=== PATIENT | female | born 1935 | race Two or more races ===

== ENCOUNTER 2018-03-12 05:41 | Inpatient (IN) | payer SELFPAY ==
[~2018-03-12] VITALS: Ht 142.2 cm; Wt 54.0 kg
[2018-03-12] VITALS (7 sets, daily range): BP systolic 157–206; BP diastolic 40–78
[2018-03-12] MEDS ORDERED: BP MEDS (05:50)
[2018-03-12] MEDS ORDERED: Isovue-300 100ml vial INJ PRN (06:15)
--- NOTE | 2018-03-12 06:16 | Emergency Room Report ---
History of Present Illness General Chief Complaint: Vaginal Source: Patient, Family Member Present Illness HPI This is an 83-year-old female with no past medical history other than depression. She presents with chief complaint of rectal bleeding. Initially her daughter said vaginal bleeding but in reality rectal bleeding. It was painless. She went to the bathroom and there was blood from her rectum. No fever chills. No nausea no vomiting. She does have some mild left upper quadrant pain is been on and off for a while now. No workup. No weight loss. Denies any other complaint. No urinary complaint. Allergies: Coded Allergies: No Known Allergies (Unverified , 03/12/18) Patient History Past Medical History: see triage record, old chart reviewed, psych hx - depression Past Surgical History: other Pertinent Family History: none Social History: Denies: drug use Now: No Immunizations: other Reviewed Nursing Documentation: PMH: Agreed; PSxH: Agreed Nursing Documentation-PMH Hx Hypertension: Yes Review of Systems Eye: Denies: eye pain, blurred vision ENT: Denies: ear pain, nose congestion, throat swelling Respiratory: Denies: cough, shortness of breath Cardiovascular: Denies: chest pain, palpitations Gastrointestinal: Denies: abdominal pain, diarrhea, nausea, vomiting Musculoskeletal: Denies: back pain, joint pain Skin: Denies: rash Neurological: Denies: headache, numbness Endocrine: Denies: increased thirst, increased urine Hematologic/Lymphatic: Denies: easy bruising All Other Systems: negative except mentioned in HPI Physical Exam Vital Signs Date Time Temp Pulse Resp B/P (MAP) Pulse Ox O2 Delivery O2 Flow Rate FiO2 03/12/18 05:43 97.7 71 16 192/67 94 Room Air 97.7 vitals with high blood pressure Sp02 EP Interpretation: reviewed, normal General Appearance: well appearing, no apparent distress, alert Head: normocephalic, atraumatic Eyes: bilateral eye PERRL, bilateral eye EOMI ENT: hearing grossly normal, normal pharynx Neck: full range of motion, supple, no meningismus Respiratory: chest non-tender, lungs clear, normal breath sounds Cardiovascular #1: regular rate, rhythm, no murmur Gastrointestinal: normal bowel sounds, non tender, no mass, no organomegaly, no bruit, non-distended Genitourinary: other - Vaginal exam done with female nurse as RN. There was no blood in the vaginal vault. She has dry blood on her underwear. She has dry blood in the rectum. Musculoskeletal: back normal, gait/station normal, normal range of motion Neurologic: normal inspection, alert Psychiatric: mood/affect normal Skin: warm/dry Medical Decision Making Diagnostic Impression: Primary Impression: Rectal bleeding Additional Impression: Hypertension Qualified Codes: I10 - Essential (primary) hypertension ER Course Patient with rectal bleeding. Differential included but not limited to hemorrhoid, neoplastic process, diverticular bleed to name a few. She is currently not on any blood pressure medication. Blood pressures high here. Labs pending. CT scan pending. I will sign this patient out to Dr. Elena for final disposition. Last Vital Signs Date Time Temp Pulse Resp B/P (MAP) Pulse Ox O2 Delivery O2 Flow Rate FiO2 03/12/18 05:43 97.7 71 16 192/67 94 Room Air 97.7 Status: unchanged BESS BALDERAS M.D. Mar 12, 2018 06:16
[2018-03-12 06:39] LABS: BASOPHILS % (AUTO) 0.6 % (0.0-2.0); EOSINOPHILS % (AUTO) 0.7 % (0.0-3.0); HEMATOCRIT 34.3 % (37.0-47.0); HEMOGLOBIN 12.4 G/DL (12.0-16.0); LYMPHOCYTES % (AUTO) 53.9 % (20.0-45.0); MEAN CORPUSCULAR VOLUME 100 FL (80-99); MONOCYTES % (AUTO) 14.6 % (1.0-10.0); NEUTROPHILS % (AUTO) 30.2 % (45.0-75.0); PLATELET COUNT 206 K/UL (150-450); RED BLOOD COUNT 3.42 M/UL (4.20-5.40); RED CELL DISTRIBUTION WIDTH 11.9 % (11.6-14.8); WHITE BLOOD COUNT 13.2 K/UL (4.8-10.8)
[2018-03-12 06:48] LABS: ANION GAP 8 mmol/L (5-15); BLOOD UREA NITROGEN 21 mg/dL (7-18); CALCIUM 8.6 MG/DL (8.5-10.1); CARBON DIOXIDE 27 MMOL/L (21-32); CHLORIDE 108 MMOL/L (98-107); CREATININE 0.8 MG/DL (0.55-1.30); POTASSIUM 3.8 MMOL/L (3.5-5.1); SODIUM 143 MMOL/L (136-145)
[2018-03-12 06:53] LABS: ALANINE AMINOTRANSFERASE 21 U/L (12-78); ALBUMIN 2.7 G/DL (3.4-5.0); ALBUMIN/GLOBULIN RATIO 0.7 (1.0-2.7); ALKALINE PHOSPHATASE 133 U/L (46-116); ASPARTATE AMINO TRANSFERASE 24 U/L (15-37); BILIRUBIN,TOTAL 0.2 MG/DL (0.2-1.0)
[2018-03-12 07:02] LABS: APPEARANCE,URINE CLEAR; BILIRUBIN, URINE NEGATIVE (NEGATIVE); COLOR,URINE PALE YELLOW; GLUCOSE, URINE (UA) NEGATIVE (NEGATIVE); KETONES,URINE NEGATIVE (NEGATIVE); LEUKOCYTE ESTERASE ,URINE NEGATIVE (NEGATIVE); NITRITE,URINE NEGATIVE (NEGATIVE); PH,URINE 6 (4.5-8.0); PROTEIN,URINE NEGATIVE (NEGATIVE); UROBILINOGEN,URINE NORMAL MG/DL (0.0-1.0)
--- NOTE | 2018-03-12 07:14 | Emergency Room Report ---
Physical Exam Please see note from Dr. Baptiste. Apparently blood in toilet noted. Thought to be vaginal, however, his exam revealed rectal blood. Patient has been having LLQ pain. She does not understand to characterize. No pain at this time. Vital Signs Date Time Temp Pulse Resp B/P (MAP) Pulse Ox O2 Delivery O2 Flow Rate FiO2 03/12/18 05:43 97.7 71 16 192/67 94 Room Air 97.7 Sp02 EP Interpretation: reviewed, normal General Appearance: well appearing, no apparent distress, other - frail Head: normocephalic Eyes: bilateral eye normal inspection, bilateral eye PERRL ENT: moist mucus membranes Neck: supple Respiratory: lungs clear, normal breath sounds Cardiovascular #1: regular rate, rhythm Cardiovascular #2: 2+ radial (R) Gastrointestinal: normal inspection, normal bowel sounds, non tender, no mass, non-distended Musculoskeletal: back normal, gait/station normal, normal range of motion Neurologic: alert, motor weakness, grossly normal, oriented - X2 Psychiatric: mood/affect normal Skin: normal inspection, warm/dry Medical Decision Making Diagnostic Impression: Primary Impression: Diverticulitis Additional Impressions: Rectal bleeding Hypertension Qualified Codes: I10 - Essential (primary) hypertension ER Course Please from Dr. Baptiste. Patient here for questionable vaginal bleeding however determined to be rectal. Patient without complaints although prior LLQ pain. Labs reveal white count of 13,000. Hgb = 12.4. In addition BUN and is elevated with normal creatinine. CT reveals low grade diverticulitis. Antibiotics begun. Lisinopril given for HTN. Admit med Dr. Anne. Not surgical abdomen or problem at this time. Laboratory Tests Test 03/12/18 06:14 White Blood Count 13.2 K/UL (4.8-10.8) H Red Blood Count 3.42 M/UL (4.20-5.40) L Hemoglobin 12.4 G/DL (12.0-16.0) Hematocrit 34.3 % (37.0-47.0) L Mean Corpuscular Volume 100 FL (80-99) H Mean Corpuscular Hemoglobin 36.1 PG (27.0-31.0) H Mean Corpuscular Hemoglobin Concent 36.1 G/DL (32.0-36.0) H Red Cell Distribution Width 11.9 % (11.6-14.8) Platelet Count 206 K/UL (150-450) Mean Platelet Volume 7.4 FL (6.5-10.1) Neutrophils (%) (Auto) 30.2 % (45.0-75.0) L Lymphocytes (%) (Auto) 53.9 % (20.0-45.0) H Monocytes (%) (Auto) 14.6 % (1.0-10.0) H Eosinophils (%) (Auto) 0.7 % (0.0-3.0) Basophils (%) (Auto) 0.6 % (0.0-2.0) Urine Color Pale yellow Urine Appearance Clear Urine pH 6 (4.5-8.0) Urine Specific [place] 1.015 (1.005-1.035) Urine Protein Negative (NEGATIVE) Urine Glucose (UA) Negative (NEGATIVE) Urine Ketones Negative (NEGATIVE) Urine Occult Blood 1+ (NEGATIVE) H Urine Nitrite Negative (NEGATIVE) Urine Bilirubin Negative (NEGATIVE) Urine Urobilinogen Normal MG/DL (0.0-1.0) Urine Leukocyte Esterase Negative (NEGATIVE) Urine RBC 2-4 /HPF (0 - 2) H Urine WBC 0-2 /HPF (0 - 2) Urine Squamous Epithelial Cells Few /LPF (NONE/OCC) Urine Bacteria Occasional /HPF (NONE) Sodium Level 143 MMOL/L (136-145) Potassium Level 3.8 MMOL/L (3.5-5.1) Chloride Level 108 MMOL/L (98-107) H Carbon Dioxide Level 27 MMOL/L (21-32) Anion Gap 8 mmol/L (5-15) Blood Urea Nitrogen 21 mg/dL (7-18) H Creatinine 0.8 MG/DL (0.55-1.30) Estimate Glomerular Filtration Rate mL/min (>60) Glucose Level 115 MG/DL (74-106) H Calcium Level 8.6 MG/DL (8.5-10.1) Total Bilirubin 0.2 MG/DL (0.2-1.0) Aspartate Amino Transferase (AST) 24 U/L (15-37) Alanine Aminotransferase (ALT) 21 U/L (12-78) Alkaline Phosphatase 133 U/L (46-116) H Total Protein 6.5 G/DL (6.4-8.2) Albumin 2.7 G/DL (3.4-5.0) L Globulin 3.8 g/dL Albumin/Globulin Ratio 0.7 (1.0-2.7) L Lipase 91 U/L (73-393) EKG Diagnostic Results Rate: normal Rhythm: NSR ST Segments: no acute changes Rhythm Strip Diag. Results EP Interpretation: yes Rhythm: NSR, no PVC's, no ectopy CT/MRI/US Diagnostic Results CT/MRI/US Diagnostic Results : Imaging Test Ordered: CT abd pelvis Impression diverticulitis Last Vital Signs Date Time Temp Pulse Resp B/P (MAP) Pulse Ox O2 Delivery O2 Flow Rate FiO2 03/12/18 20:47 159/64 03/12/18 20:00 98.3 77 18 98 98.3 03/12/18 10:32 Room Air Status: improved Disposition: ADMITTED INPATIENT Condition: Serious Referrals: NOT CHOSEN IPA/,REFERRING (PCP) [place] Elena M.D. Mar 12, 2018 07:14
[2018-03-12] MEDS ORDERED: LOSARTAN POTASS25 MG ORAL (07:36)
[2018-03-12] MEDS ORDERED: Cefepime HCl 1 GM in D5W 55 ML IVPB ONE (08:00)
[2018-03-12] MEDS ORDERED: Lisinopril 10mg tab ORAL ONE (08:00)
[2018-03-12] MEDS ORDERED: Sodium Chloride 500ML 550 ML IV SCH (08:00)
--- NOTE | 2018-03-12 09:17 | Diagnostic Imaging Report ---
Indication: Abdominal pain Technique: Continuous helical transaxial imaging of the abdomen and pelvis was obtained from the lung bases to the pubic symphysis during intravenous contrast administration. Coronal 2-D reformats were also obtained. Study obtained in a Siemens sensation [address] Automatic Exposure Control was utilized. Total Dose length Product (DLP): 621.[address] Dose Index Volume (CTDIvol): 12.2 mGy Comparison: None Findings: The lung bases are essentially clear. There is a small pericardial effusion. The heart is also enlarged. Small hiatal hernia is present. The gallbladder is not visualized. Left kidney is atrophic. Aorta is moderately calcified. No evidence of bowel obstruction. Small umbilical hernia containing fat demonstrated. Question of a mild diverticulitis in the sigmoid region which is extensively involved with diverticulosis. Atrophied uterus noted. No free fluid or abscess, free air identified. There is narrowing of intervertebral discs and accompanying endplate osteophyte formation within the lumbar spine. Hypertrophied facet joints also demonstrated.. IMPRESSION: Question of mild diverticulitis in the sigmoid region. Extensive diverticulosis noted. Atherosclerotic vascular disease Trace pericardial effusion Small hiatal hernia Small local hernia Atrophy left kidney. Degenerative changes of the lumbar spine The CT scanner at [facility] is accredited by the [employer] and the scans are performed using dose optimization techniques as appropriate to a performed exam including Automatic Exposure control.
[2018-03-12] MEDS ORDERED: Cefepime HCl 1 GM in D5W 55 ML IVPB SCH (11:00)
[2018-03-12] MEDS ORDERED: Morphine Sulfate 2mg/ml Inj IVP PRN (11:00)
[2018-03-12] MEDS: cefTRIAXone 2 GM in D5W 110 ML IVPB SCH (11:29)
[2018-03-12] MEDS: D5NS 1,000 ML IV SCH ×2 (11:29→20:47)
--- NOTE | 2018-03-12 12:21 | Infectious Diseases Prog Note ---
Assessment/Plan Problems: (1) Diverticulitis Assessment & Plan: will start ceftriaxon and metronidazol empiric coverage (2) Rectal bleeding Assessment & Plan: source diverticulosis VS ischemic colitis , recommend GI eval, close monitor of H/H, transfuse as needed (3) Hypertension Assessment & Plan: continue blood pressure meds monitor in tele Subjective Allergies: Coded Allergies: No Known Allergies (Unverified , 03/12/18) Objective Vital Signs Last 24 Hour Vital Signs Date Time Temp Pulse Resp B/P (MAP) Pulse Ox O2 Delivery O2 Flow Rate FiO2 03/12/18 11:50 97.1 70 18 157/62 99 97.1 03/12/18 10:32 97.0 77 18 191/71 99 Room Air 97.0 03/12/18 10:31 97.0 77 18 191/71 99 97.0 03/12/18 10:08 68 19 175/46 96 Room Air 03/12/18 09:07 67 20 176/40 96 Room Air 03/12/18 08:00 03/12/18 07:23 84 24 96 Room Air 03/12/18 05:43 97.7 71 16 192/67 94 Room Air 97.7 Height (Feet): 4 Height (Inches): 11.00 Weight (Pounds): 120 Laboratory Tests Test 03/12/18 06:14 White Blood Count 13.2 K/UL (4.8-10.8) H Red Blood Count 3.42 M/UL (4.20-5.40) L Hemoglobin 12.4 G/DL (12.0-16.0) Hematocrit 34.3 % (37.0-47.0) L Mean Corpuscular Volume 100 FL (80-99) H Mean Corpuscular Hemoglobin 36.1 PG (27.0-31.0) H Mean Corpuscular Hemoglobin Concent 36.1 G/DL (32.0-36.0) H Red Cell Distribution Width 11.9 % (11.6-14.8) Platelet Count 206 K/UL (150-450) Mean Platelet Volume 7.4 FL (6.5-10.1) Neutrophils (%) (Auto) 30.2 % (45.0-75.0) L Lymphocytes (%) (Auto) 53.9 % (20.0-45.0) H Monocytes (%) (Auto) 14.6 % (1.0-10.0) H Eosinophils (%) (Auto) 0.7 % (0.0-3.0) Basophils (%) (Auto) 0.6 % (0.0-2.0) Urine Color Pale yellow Urine Appearance Clear Urine pH 6 (4.5-8.0) Urine Specific [place] 1.015 (1.005-1.035) Urine Protein Negative (NEGATIVE) Urine Glucose (UA) Negative (NEGATIVE) Urine Ketones Negative (NEGATIVE) Urine Occult Blood 1+ (NEGATIVE) H Urine Nitrite Negative (NEGATIVE) Urine Bilirubin Negative (NEGATIVE) Urine Urobilinogen Normal MG/DL (0.0-1.0) Urine Leukocyte Esterase Negative (NEGATIVE) Urine RBC 2-4 /HPF (0 - 2) H Urine WBC 0-2 /HPF (0 - 2) Urine Squamous Epithelial Cells Few /LPF (NONE/OCC) Urine Bacteria Occasional /HPF (NONE) Sodium Level 143 MMOL/L (136-145) Potassium Level 3.8 MMOL/L (3.5-5.1) Chloride Level 108 MMOL/L (98-107) H Carbon Dioxide Level 27 MMOL/L (21-32) Anion Gap 8 mmol/L (5-15) Blood Urea Nitrogen 21 mg/dL (7-18) H Creatinine 0.8 MG/DL (0.55-1.30) Estimat Glomerular Filtration Rate mL/min (>60) Glucose Level 115 MG/DL (74-106) H Calcium Level 8.6 MG/DL (8.5-10.1) Total Bilirubin 0.2 MG/DL (0.2-1.0) Aspartate Amino Transf (AST/SGOT) 24 U/L (15-37) Alanine Aminotransferase (ALT/SGPT) 21 U/L (12-78) Alkaline Phosphatase 133 U/L (46-116) H Total Protein 6.5 G/DL (6.4-8.2) Albumin 2.7 G/DL (3.4-5.0) L Globulin 3.8 g/dL Albumin/Globulin Ratio 0.7 (1.0-2.7) L Lipase 91 U/L (73-393) Current Medications Medications (Trade) Dose Ordered Sig/Isabel Route PRN Reason Start Time Stop Time Status Last Admin Dose Admin Acetaminophen (Tylenol) 650 mg Q4H PRN ORAL Mild Pain/Temp > 100.5 03/12/18 11:00 04/11/18 10:59 Ceftriaxone Sodium 2 gm/ Dextrose 110 ml @ 220 mls/hr Q24H IVPB 03/12/18 11:00 03/19/18 10:59 03/12/18 11:29 Clonidine HCl (Catapres Tab) 0.1 mg Q8H PRN ORAL For High Blood Pressure 03/12/18 11:15 04/11/18 11:14 Dextrose/Sodium Chloride 1,000 ml @ 100 mls/hr Q10H IV 03/12/18 11:00 04/11/18 10:59 03/12/18 11:29 Hydralazine HCl (Apresoline) 25 mg BID ORAL 03/12/18 18:00 04/11/18 17:59 Iopamidol (Isovue-300 100ml) 100 ml NOW PRN INJ Radiology Procedure 03/12/18 06:15 Losartan Potassium (Cozaar) 25 mg DAILY ORAL 03/13/18 09:00 04/12/18 08:59 Metronidazole 100 ml @ 100 mls/hr Q8HR IVPB 03/12/18 14:00 03/19/18 13:59 Morphine Sulfate (Morphine Sulfate) 2 mg Q8H PRN IVP Severe Pain (Pain Scale 7-10) 03/12/18 11:00 03/19/18 10:59 Pantoprazole (Protonix) 40 mg DAILY IVP 03/13/18 09:00 04/12/18 08:59 Sodium Chloride 550 ml @ 100 mls/hr Q5H30M IV 03/12/18 08:00 04/11/18 07:59 03/12/18 08:00 Tatum Hernandez M.D. Mar 12, 2018 12:21
--- NOTE | 2018-03-12 13:17 | GI Initial Consult Note ---
History of Present Illness General Date patient seen: Mar 12, 2018 Time patient seen: 13:20 Reason for Hospitalization: ABDOMINAL PAIN Referring physician: KUNAL LAZAR Reason for Consultation: DIVERTICULITIS Present Illness HPI This is an 83-year-old female with no past medical history other than depression. She presents with chief complaint of rectal bleeding. Initially her daughter said vaginal bleeding but in reality rectal bleeding. It was painless. She went to the bathroom and there was blood from her rectum. No fever chills. No nausea no vomiting. She does have some mild left upper quadrant pain is been on and off for a while now. No workup. No weight loss. Denies any other complaint. No urinary complaint. GI consulted for mild diverticulitis based on CT AP. Pt seen, awake A&Ox4 NAD with daughter at bedside. No active s/sx of N/V/D. Reports of abdominal pain x 2 weeks with noted vaginal vs rectal bleeding. Labs reviewed show mild leukocytosis and stable Hgb. The patient has no history of endoscopy / colonoscopy. Home Meds Reported Medications Losartan Potassium* (LOSARTAN POTASSIUM*) 25 Mg Tablet, 25 MG ORAL DAILY, TAB 03/12/18 [Bp Meds] No Conflict Check 03/12/18 Med list reviewed/reconciled: Yes Allergies: Coded Allergies: No Known Allergies (Unverified , 03/12/18) Patient History Limited by: language barrier History Provided By: Family Member, Medical Record PMH Narrative Past Medical History: see triage record, old chart reviewed, psych hx - depression Past Surgical History: other Pertinent Family History: none Social History: Denies: drug use Now: No Immunizations: other Reviewed Nursing Documentation: PMH: Agreed; PSxH: Agreed Nursing Documentation-PMH Hx Hypertension: Yes Social History: Denies: smoking, alcohol use, drug use, other Review of Systems All Other Systems: negative except mentioned in HPI Physical Exam Vital Signs Date Time Temp Pulse Resp B/P (MAP) Pulse Ox O2 Delivery O2 Flow Rate FiO2 03/12/18 05:43 97.7 71 16 192/67 94 Room Air 97.7 Sp02 EP Interpretation: reviewed, normal Labs Laboratory Tests Test 03/12/18 06:14 White Blood Count 13.2 K/UL (4.8-10.8) H Red Blood Count 3.42 M/UL (4.20-5.40) L Hemoglobin 12.4 G/DL (12.0-16.0) Hematocrit 34.3 % (37.0-47.0) L Mean Corpuscular Volume 100 FL (80-99) H Mean Corpuscular Hemoglobin 36.1 PG (27.0-31.0) H Mean Corpuscular Hemoglobin Concent 36.1 G/DL (32.0-36.0) H Red Cell Distribution Width 11.9 % (11.6-14.8) Platelet Count 206 K/UL (150-450) Mean Platelet Volume 7.4 FL (6.5-10.1) Neutrophils (%) (Auto) 30.2 % (45.0-75.0) L Lymphocytes (%) (Auto) 53.9 % (20.0-45.0) H Monocytes (%) (Auto) 14.6 % (1.0-10.0) H Eosinophils (%) (Auto) 0.7 % (0.0-3.0) Basophils (%) (Auto) 0.6 % (0.0-2.0) Urine Color Pale yellow Urine Appearance Clear Urine pH 6 (4.5-8.0) Urine Specific [place] 1.015 (1.005-1.035) Urine Protein Negative (NEGATIVE) Urine Glucose (UA) Negative (NEGATIVE) Urine Ketones Negative (NEGATIVE) Urine Occult Blood 1+ (NEGATIVE) H Urine Nitrite Negative (NEGATIVE) Urine Bilirubin Negative (NEGATIVE) Urine Urobilinogen Normal MG/DL (0.0-1.0) Urine Leukocyte Esterase Negative (NEGATIVE) Urine RBC 2-4 /HPF (0 - 2) H Urine WBC 0-2 /HPF (0 - 2) Urine Squamous Epithelial Cells Few /LPF (NONE/OCC) Urine Bacteria Occasional /HPF (NONE) Sodium Level 143 MMOL/L (136-145) Potassium Level 3.8 MMOL/L (3.5-5.1) Chloride Level 108 MMOL/L (98-107) H Carbon Dioxide Level 27 MMOL/L (21-32) Anion Gap 8 mmol/L (5-15) Blood Urea Nitrogen 21 mg/dL (7-18) H Creatinine 0.8 MG/DL (0.55-1.30) Estimat Glomerular Filtration Rate mL/min (>60) Glucose Level 115 MG/DL (74-106) H Calcium Level 8.6 MG/DL (8.5-10.1) Total Bilirubin 0.2 MG/DL (0.2-1.0) Aspartate Amino Transf (AST/SGOT) 24 U/L (15-37) Alanine Aminotransferase (ALT/SGPT) 21 U/L (12-78) Alkaline Phosphatase 133 U/L (46-116) H Total Protein 6.5 G/DL (6.4-8.2) Albumin 2.7 G/DL (3.4-5.0) L Globulin 3.8 g/dL Albumin/Globulin Ratio 0.7 (1.0-2.7) L Lipase 91 U/L (73-393) General Appearance: well appearing, no apparent distress, alert, thin Head: normocephalic EENT: PERRL/EOMI, normal ENT inspection Neck: supple Respiratory: normal breath sounds, no respiratory distress Cardiovascular: normal rate Gastrointestinal: normal inspection, non tender, soft, normal bowel sounds, non -distended Rectal: deferred Genitourinary: no CVA tenderness Musculoskeletal: normal inspection, back normal Neurologic: normal inspection, alert, oriented x3, responsive Psychiatric: normal inspection, judgement/insight normal, memory normal Skin: normal inspection, normal color, no rash, warm/dry, palpation normal, well hydrated Lymphatic: normal inspection, no adenopathy Current Medications Current Medications Medications (Trade) Dose Ordered Sig/Isabel Route PRN Reason Start Time Stop Time Status Last Admin Dose Admin Acetaminophen (Tylenol) 650 mg Q4H PRN ORAL Mild Pain/Temp > 100.5 03/12/18 11:00 04/11/18 10:59 Ceftriaxone Sodium 2 gm/ Dextrose 110 ml @ 220 mls/hr Q24H IVPB 03/12/18 11:00 03/19/18 10:59 03/12/18 11:29 Clonidine HCl (Catapres Tab) 0.1 mg Q8H PRN ORAL For High Blood Pressure 03/12/18 11:15 04/11/18 11:14 Dextrose/Sodium Chloride 1,000 ml @ 100 mls/hr Q10H IV 03/12/18 11:00 04/11/18 10:59 03/12/18 11:29 Hydralazine HCl (Apresoline) 25 mg BID ORAL 03/12/18 18:00 7/27/18 17:59 Iopamidol (Isovue-300 100ml) 100 ml NOW PRN INJ Radiology Procedure 03/12/18 06:15 Losartan Potassium (Cozaar) 25 mg DAILY ORAL 03/13/18 09:00 04/12/18 08:59 Metronidazole 100 ml @ 100 mls/hr Q8HR IVPB 03/12/18 14:00 03/19/18 13:59 Morphine Sulfate (Morphine Sulfate) 2 mg Q8H PRN IVP Severe Pain (Pain Scale 7-10) 03/12/18 11:00 03/19/18 10:59 Pantoprazole (Protonix) 40 mg DAILY IVP 03/13/18 09:00 04/12/18 08:59 Sodium Chloride 550 ml @ 100 mls/hr Q5H30M IV 03/12/18 08:00 04/11/18 07:59 03/12/18 08:00 GI: Plan Problems: (1) Diverticulitis (2) Rectal bleeding (3) GI bleed Plan CT AP reviewed >> mild sigmoid diverticulitis reports of rectal bleed >> diverticulosis vs hemorrhoidal vs ischemic colitis > > stable Hgb at this time abdominal pain >> denies at this time bowel rest >> CLD, advanced as tolerated IV Abx per ID pain mgmt ppi anusol HC prn fu labs patient is stable for discharge if she can tolerate diet and pain is managed. she will require abx transition to PO Cipro + Flagyl x 10 days when discharged f/u with her PCP for a colonoscopy 2 months after discharge date. Discussed with Dr. Ayala. Thank you for this patient referral, we will follow. The patient was seen and examined at bedside and all new and available data was reviewed in the patients chart. I agree with the above findings, impression and plan. (Patient seen earlier today. Signature stamp does not reflect patient encounter time.). - MD Oliva Vega Anh-Tal [employer] Mar 12, 2018 13:17
--- NOTE | 2018-03-12 13:56 | Consultation ---
History of Present Illness General Date patient seen: Mar 12, 2018 Chief Complaint: Vaginal Referring physician: KUNAL LAZAR Reason for Consultation: DIVERTICULITIS Present Illness HPI 83 year old female presented for evaluation of rectal bleeding. as per patient and daughter she has been having intermittent abdominal pain. recently noted to some blood in the toilet and believed it to be vaginal vs rectal. came to ED for evaluation. leukocytosis 13k. CT with mild diverticulitis and lots of diverticulosis. surgery called to evaluate for abdominal pain. patient seen, chart reviewed, patient examined. Allergies: Coded Allergies: No Known Allergies (Unverified , 03/12/18) Medication History Scheduled Losartan Potassium* (Losartan Potassium*), 25 MG ORAL DAILY, (Reported) Miscellaneous Medications [Bp Meds], (Reported) Patient History History Provided By: Patient, Family Member, Medical Record, PMD Healthcare decision maker Resuscitation status Full Code Advanced Directive on File Past Medical/Surgical History Past Medical/Surgical History: (1) Diverticulitis (2) Rectal bleeding (3) Hypertension (4) GI bleed Review of Systems All Other Systems: negative except mentioned in HPI Physical Exam General Appearance: no apparent distress Lines, tubes and drains: peripheral HEENT: mucous membranes moist Neck: normal inspection Respiratory/Chest: normal breath sounds Cardiovascular/Chest: normal peripheral pulses Abdomen: normal bowel sounds, non tender, soft, no organomegaly, no mass Extremities: non-tender, normal inspection Skin Exam: warm/dry 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, alert, oriented x 3 Last 24 Hour Vital Signs Date Time Temp Pulse Resp B/P (MAP) Pulse Ox O2 Delivery O2 Flow Rate FiO2 03/12/18 11:50 97.1 70 18 157/62 99 97.1 03/12/18 10:32 97.0 77 18 191/71 99 Room Air 97.0 03/12/18 10:31 97.0 77 18 191/71 99 97.0 03/12/18 10:08 68 19 175/46 96 Room Air 03/12/18 09:07 67 20 176/40 96 Room Air 03/12/18 08:00 03/12/18 07:23 84 24 / 96 Room Air 03/12/18 05:43 97.7 71 16 192/67 94 Room Air 97.7 Laboratory Tests Test 03/12/18 06:14 White Blood Count 13.2 K/UL (4.8-10.8) H Red Blood Count 3.42 M/UL (4.20-5.40) L Hemoglobin 12.4 G/DL (12.0-16.0) Hematocrit 34.3 % (37.0-47.0) L Mean Corpuscular Volume 100 FL (80-99) H Mean Corpuscular Hemoglobin 36.1 PG (27.0-31.0) H Mean Corpuscular Hemoglobin Concent 36.1 G/DL (32.0-36.0) H Red Cell Distribution Width 11.9 % (11.6-14.8) Platelet Count 206 K/UL (150-450) Mean Platelet Volume 7.4 FL (6.5-10.1) Neutrophils (%) (Auto) 30.2 % (45.0-75.0) L Lymphocytes (%) (Auto) 53.9 % (20.0-45.0) H Monocytes (%) (Auto) 14.6 % (1.0-10.0) H Eosinophils (%) (Auto) 0.7 % (0.0-3.0) Basophils (%) (Auto) 0.6 % (0.0-2.0) Urine Color Pale yellow Urine Appearance Clear Urine pH 6 (4.5-8.0) Urine Specific [place] 1.015 (1.005-1.035) Urine Protein Negative (NEGATIVE) Urine Glucose (UA) Negative (NEGATIVE) Urine Ketones Negative (NEGATIVE) Urine Occult Blood 1+ (NEGATIVE) H Urine Nitrite Negative (NEGATIVE) Urine Bilirubin Negative (NEGATIVE) Urine Urobilinogen Normal MG/DL (0.0-1.0) Urine Leukocyte Esterase Negative (NEGATIVE) Urine RBC 2-4 /HPF (0 - 2) H Urine WBC 0-2 /HPF (0 - 2) Urine Squamous Epithelial Cells Few /LPF (NONE/OCC) Urine Bacteria Occasional /HPF (NONE) Sodium Level 143 MMOL/L (136-145) Potassium Level 3.8 MMOL/L (3.5-5.1) Chloride Level 108 MMOL/L (98-107) H Carbon Dioxide Level 27 MMOL/L (21-32) Anion Gap 8 mmol/L (5-15) Blood Urea Nitrogen 21 mg/dL (7-18) H Creatinine 0.8 MG/DL (0.55-1.30) Estimat Glomerular Filtration Rate mL/min (>60) Glucose Level 115 MG/DL (74-106) H Calcium Level 8.6 MG/DL (8.5-10.1) Total Bilirubin 0.2 MG/DL (0.2-1.0) Aspartate Amino Transf (AST/SGOT) 24 U/L (15-37) Alanine Aminotransferase (ALT/SGPT) 21 U/L (12-78) Alkaline Phosphatase 133 U/L (46-116) H Total Protein 6.5 G/DL (6.4-8.2) Albumin 2.7 G/DL (3.4-5.0) L Globulin 3.8 g/dL Albumin/Globulin Ratio 0.7 (1.0-2.7) L Lipase 91 U/L (73-393) Height (Feet): 4 Height (Inches): 8.00 Weight (Pounds): 119 Medications Current Medications Medications (Trade) Dose Ordered Sig/Isabel Route PRN Reason Start Time Stop Time Status Last Admin Dose Admin Acetaminophen (Tylenol) 650 mg Q4H PRN ORAL Mild Pain/Temp > 100.5 03/12/18 11:00 04/11/18 10:59 Ceftriaxone Sodium 2 gm/ Dextrose 110 ml @ 220 mls/hr Q24H IVPB 03/12/18 11:00 03/19/18 10:59 03/12/18 11:29 Clonidine HCl (Catapres Tab) 0.1 mg Q8H PRN ORAL For High Blood Pressure 03/12/18 11:15 04/11/18 11:14 Dextrose/Sodium Chloride 1,000 ml @ 100 mls/hr Q10H IV 03/12/18 11:00 04/11/18 10:59 03/12/18 11:29 Hydralazine HCl (Apresoline) 25 mg BID ORAL 03/12/18 18:00 04/11/18 17:59 Hydrocortisone (Anusol HC) 1 applic TWICE A DAY PRN RECTAL RECTAL BLEED 03/12/18 13:30 04/11/18 13:29 UNV Iopamidol (Isovue-300 100ml) 100 ml NOW PRN INJ Radiology Procedure 03/12/18 06:15 Losartan Potassium (Cozaar) 25 mg DAILY ORAL 03/13/18 09:00 04/12/18 08:59 Metronidazole 100 ml @ 100 mls/hr Q8HR IVPB 03/12/18 14:00 03/19/18 13:59 Morphine Sulfate (Morphine Sulfate) 2 mg Q8H PRN IVP Severe Pain (Pain Scale 7-10) 03/12/18 11:00 03/19/18 10:59 Pantoprazole (Protonix) 40 mg DAILY IVP 03/13/18 09:00 04/12/18 08:59 Assessment/Plan Problem List: (1) Diverticulitis Assessment & Plan: 83F with diverticulitis, diverticulosis, and rectal bleeding. current afebrile, HD stable, leukocytosis 13k, labs otherwise stable. exam benign and states pain resolved since admission. no n/v/f/c. -no acute surgical intervention necessary -medical management of non complicated simple diverticulitis with abx -appreciate GI input will follow with recs. thank you for this consultation. ICD Codes: K57.92 - Diverticulitis of intestine, part unspecified, without perforation or abscess without bleeding SNOMED: 888469968 Status: stable Filiberto Moyer Mar 12, 2018 13:56
--- NOTE | 2018-03-12 14:57 | Cardiology Report ---
APPROVED REPORT EKG Measurement Heart [id number] MD [id number] Normal sinus rhythm Prolonged QT Abnormal ECG
--- NOTE | 2018-03-12 15:41 | History & Physical ---
History and Physical History & Physicial seen and examined. Full Dictation in progress Gregoria Anne MD Mar 12, 2018 15:41
[2018-03-12] MEDS: HydrALAZINE 25mg tab ORAL SCH (17:19)
--- NOTE | 2018-03-12 17:31 | Consultation ---
DATE OF CONSULTATION: 03/12/2018 INFECTIOUS DISEASE CONSULTATION CONSULTING PHYSICIAN: Tatum Hernandez M.D. REQUESTING PHYSICIAN: Gregoria Anne M.D. REASON FOR CONSULTATION: Acute diverticulitis. HISTORY OF PRESENT ILLNESS: The patient is an 83-year-old female with no past medical history, who was evaluated in the emergency room at [facility] for left lower quadrant abdominal pain. The patient noticed blood in the toilet. It was felt to be vaginal first, but on exam it was coming from the rectum in the emergency room. The patient speaks mainly [place] Leonean and she has language barrier. She had some transverse abdominal pain. No nausea or vomiting, but bloody bowel movements since yesterday. The patient recently moved from [place] 3 weeks ago. Denied any previous history of stomach bleeding or GI bleeding. The patient had a CT scan of the abdomen and pelvis in the emergency room, which showed sigmoid diverticulitis with significant diverticulosis. So, she was started on IV antibiotics and Infectious Disease consultation was requested for further evaluation and management. PAST MEDICAL HISTORY: Negative, not on record. PAST SURGICAL HISTORY: Negative. MEDICATIONS: The patient received cefepime and levofloxacin in the emergency room. For the rest of her medications, please refer to [facility]. ALLERGIES: No known drug allergy. FAMILY HISTORY: Unable to obtain. SOCIAL HISTORY: The patient is originally from [place] and moved to [place] 2 weeks ago, lives with daughter at home. No recent drugs, tobacco, or alcohol. REVIEW OF SYSTEMS: A 12-point of systems reviewed were all negative apart from the one I mentioned above in my History and Physical. PHYSICAL EXAMINATION: GENERAL: Elderly female, [place]an speaker, lying in bed, awake, alert, comfortable, not in distress, complaining of mild abdominal pain. VITAL SIGNS: Temperature 97.1 degrees, pulse 70, respiration 18, blood pressure 157/62 and saturation 99% on room air. HEENT: Normocephalic and atraumatic. Pupils are reactive to light. Moist oral mucosa. No exudate. NECK: Supple. No lymphadenopathy. CARDIOVASCULAR: Regular rate and rhythm. No murmur or gallop. LUNGS: Clear bilaterally. No wheezing or rhonchi. ABDOMEN: Soft. Tender in the epigastric left quadrant area. No rebound. No ascites. No organomegaly. EXTREMITIES: No edema. No cyanosis. LABORATORY AND DIAGNOSTIC DATA: Labs showed white count of 13.2, hemoglobin of 12.4 and platelet count of 206. BUN of 21 and creatinine of 0.8. AST of 24 and ALT of 21. Urinalysis negative. Radiology, abdominal CT scan with contrast showed question of mild diverticulitis in the sigmoid region, extensive diverticulosis noted, atherosclerotic vascular disease, trace pericardial effusion, small hiatal hernia, small local hernia and atrophy of the left kidney. ASSESSMENT AND RECOMMENDATION: 1. Acute diverticulitis. We will start ceftriaxone and metronidazole empiric coverage pending clinical improvement. Recommend GI evaluation. 2. Rectal bleeding, source either diverticulosis or ischemic colitis. Recommend GI evaluation. Close monitor of hemoglobin and hematocrit and transfuse blood as needed. 3. Hypertension. Continue blood pressure medications. Monitor in telemetry unit. Thank you for the consult. ID will continue to follow. Tatum Hernandez M.D. DR: ROLA JOB#: [id number] CC:
[2018-03-13] VITALS: BP 149/55
[2018-03-13 04:00] VITALS: BP 129/8
[2018-03-13] MEDS: D5NS 1,000 ML IV SCH ×2 (05:46→17:09)
[2018-03-13 06:30] LABS: BASOPHILS % (AUTO) 0.6 % (0.0-2.0); EOSINOPHILS % (AUTO) 0.6 % (0.0-3.0); HEMATOCRIT 27.7 % (37.0-47.0); HEMOGLOBIN 9.5 G/DL (12.0-16.0); LYMPHOCYTES % (AUTO) 44.6 % (20.0-45.0); MEAN CORPUSCULAR VOLUME 100 FL (80-99); MONOCYTES % (AUTO) 15.1 % (1.0-10.0); PLATELET COUNT 188 K/UL (150-450); RED BLOOD COUNT 2.78 M/UL (4.20-5.40); RED CELL DISTRIBUTION WIDTH 11.9 % (11.6-14.8); WHITE BLOOD COUNT 9.3 K/UL (4.8-10.8)
[2018-03-13 06:37] LABS: ALANINE AMINOTRANSFERASE 20 U/L (12-78); ALBUMIN 2.2 G/DL (3.4-5.0); ALBUMIN/GLOBULIN RATIO 0.7 (1.0-2.7); ALKALINE PHOSPHATASE 93 U/L (46-116); ANION GAP 8 mmol/L (5-15); ASPARTATE AMINO TRANSFERASE 23 U/L (15-37); BILIRUBIN,TOTAL 0.3 MG/DL (0.2-1.0); BLOOD UREA NITROGEN 12 mg/dL (7-18); CALCIUM 7.6 MG/DL (8.5-10.1); CARBON DIOXIDE 24 MMOL/L (21-32); CHLORIDE 110 MMOL/L (98-107); CREATININE 0.7 MG/DL (0.55-1.30); POTASSIUM 3.1 MMOL/L (3.5-5.1); SODIUM 142 MMOL/L (136-145)
[2018-03-13 08:00] VITALS: BP 131/50
--- NOTE | 2018-03-13 08:26 | General Progress Note ---
Assessment/Plan Assessment/Plan patient is seen and examined. Dictation completed Subjective Allergies: Coded Allergies: No Known Allergies (Unverified , 03/12/18) Objective Last 24 Hour Vital Signs Date Time Temp Pulse Resp B/P (MAP) Pulse Ox O2 Delivery O2 Flow Rate FiO2 03/13/18 04:00 97.6 70 18 129/8 96 97.6 03/13/18 00:00 98.6 76 18 149/55 96 98.6 03/12/18 20:47 159/64 03/12/18 20:00 98.3 77 18 168/78 98 98.3 03/12/18 17:19 159/64 03/12/18 15:40 96.8 69 18 159/64 98 96.8 03/12/18 11:50 97.1 70 18 157/62 99 97.1 03/12/18 10:32 97.0 77 18 191/71 99 Room Air 97.0 03/12/18 10:31 97.0 77 18 191/71 99 97.0 03/12/18 10:08 68 19 175/46 96 Room Air 03/12/18 09:07 67 20 176/40 96 Room Air Intake and Output 03/12/18 03/13/18 19:00 07:00 Intake Total 955 ml 1100 ml Balance 955 ml 1100 ml Intake Oral 200 ml IV Total 755 ml 1100 ml # Voids 2 3 Laboratory Tests 03/13/18 05:25: White Blood Count 9.3, Red Blood Count 2.78L, Hemoglobin 9.5L, Hematocrit 27.7L , Mean Corpuscular Volume 100H, Mean Corpuscular Hemoglobin 34.2H, Mean Corpuscular Hemoglobin Concent 34.4, Red Cell Distribution Width 11.9, Platelet Count 188, Mean Platelet Volume 7.7, Neutrophils (%) (Auto) 39.0L, Lymphocytes ( %) (Auto) 44.6, Monocytes (%) (Auto) 15.1H, Eosinophils (%) (Auto) 0.6, Basophils (%) (Auto) 0.6, Sodium Level 142, Potassium Level 3.1L, Chloride Level 110H, Carbon Dioxide Level 24, Anion Gap 8, Blood Urea Nitrogen 12, Creatinine 0.7, Estimat Glomerular Filtration Rate , Glucose Level 111H, Calcium Level 7.6L, Total Bilirubin 0.3, Aspartate Amino Transf (AST/SGOT) 23, Alanine Aminotransferase (ALT/SGPT) 20, Alkaline Phosphatase 93, Total Protein 5.4L, Albumin 2.2L, Globulin 3.2, Albumin/Globulin Ratio 0.7L Height (Feet): 4 Height (Inches): 8.00 Weight (Pounds): 119 Gregoria Anne MD Mar 13, 2018 08:26
[2018-03-13] MEDS ORDERED: Pantoprazole Inj IVP SCH (09:00)
[2018-03-13] MEDS ORDERED: Losartan 25mg tab ORAL SCH (09:00)
[2018-03-13] MEDS: HydrALAZINE 25mg tab ORAL SCH ×2 (09:06→17:09)
--- NOTE | 2018-03-13 10:18 | GI Progress Note ---
Assessment/Plan Problems: (1) Hypertension ICD Codes: I10 - Essential (primary) hypertension SNOMED: [id number] Qualifiers: Qualified Codes: I10 - Essential (primary) hypertension (2) Rectal bleeding ICD Codes: K62.5 - Hemorrhage of anus and rectum SNOMED: 92139992 (3) Diverticulitis ICD Codes: K57.92 - Diverticulitis of intestine, part unspecified, without perforation or abscess without bleeding SNOMED: 792286557 (4) GI bleed ICD Codes: K92.2 - Gastrointestinal hemorrhage, unspecified SNOMED: 48841504 Status: stable Status Narrative Discussed with Dr. Ayala. Assessment/Plan CT AP reviewed >> mild sigmoid diverticulitis reports of rectal bleed >> diverticulosis vs hemorrhoidal vs ischemic colitis > > stable Hgb at this time abdominal pain >> denies adv to cardiac diet IV Abx per ID pain mgmt ppi anusol HC prn fu labs patient is stable for discharge if she can tolerate diet and pain is managed. she will require abx transition to PO Cipro + Flagyl x 10 days when discharged f/u with her PCP for colonoscopy 2 months after discharge date. The patient was seen and examined at bedside and all new and available data was reviewed in the patients chart. I agree with the above findings, impression and plan. (Patient seen earlier today. Signature stamp does not reflect patient encounter time.). - Jorge Ayala MD Subjective Subjective abdominal pain resolved had BM hungry Objective Last 24 Hour Vital Signs Date Time Temp Pulse Resp B/P (MAP) Pulse Ox O2 Delivery O2 Flow Rate FiO2 03/13/18 09:06 131/50 03/13/18 09:06 131/50 03/13/18 08:00 97.8 74 18 131/50 95 97.8 03/13/18 04:00 97.6 70 18 129/8 96 97.6 03/13/18 00:00 98.6 76 18 149/55 96 98.6 03/12/18 20:47 159/64 03/12/18 20:00 98.3 77 18 168/78 98 98.3 03/12/18 17:19 159/64 03/12/18 15:40 96.8 69 18 159/64 98 96.8 03/12/18 11:50 97.1 70 18 157/62 99 97.1 6/27/18 10:32 97.0 77 18 99 Room Air 97.0 03/12/18 10:31 97.0 77 99 97.0 Intake and Output 03/12/18 03/13/18 19:00 07:00 Intake Total 955 ml 1100 ml Balance 955 ml 1100 ml Intake Oral 200 ml IV Total 755 ml 1100 ml # Voids 2 3 Laboratory Tests Test 03/13/18 05:25 White Blood Count 9.3 K/UL (4.8-10.8) Red Blood Count 2.78 M/UL (4.20-5.40) L Hemoglobin 9.5 G/DL (12.0-16.0) L Hematocrit 27.7 % (37.0-47.0) L Mean Corpuscular Volume 100 FL (80-99) H Mean Corpuscular Hemoglobin 34.2 PG (27.0-31.0) H Mean Corpuscular Hemoglobin Concent 34.4 G/DL (32.0-36.0) Red Cell Distribution Width 11.9 % (11.6-14.8) Platelet Count 188 K/UL (150-450) Mean Platelet Volume 7.7 FL (6.5-10.1) Neutrophils (%) (Auto) 39.0 % (45.0-75.0) L Lymphocytes (%) (Auto) 44.6 % (20.0-45.0) Monocytes (%) (Auto) 15.1 % (1.0-10.0) H Eosinophils (%) (Auto) 0.6 % (0.0-3.0) Basophils (%) (Auto) 0.6 % (0.0-2.0) Sodium Level 142 MMOL/L (136-145) Potassium Level 3.1 MMOL/L (3.5-5.1) L Chloride Level 110 MMOL/L (98-107) H Carbon Dioxide Level 24 MMOL/L (21-32) Anion Gap 8 mmol/L (5-15) Blood Urea Nitrogen 12 mg/dL (7-18) Creatinine 0.7 MG/DL (0.55-1.30) Estimat Glomerular Filtration Rate mL/min (>60) Glucose Level 111 MG/DL (74-106) H Calcium Level 7.6 MG/DL (8.5-10.1) L Total Bilirubin 0.3 MG/DL (0.2-1.0) Aspartate Amino Transf (AST/SGOT) 23 U/L (15-37) Alanine Aminotransferase (ALT/SGPT) 20 U/L (12-78) Alkaline Phosphatase 93 U/L (46-116) Total Protein 5.4 G/DL (6.4-8.2) L Albumin 2.2 G/DL (3.4-5.0) L Globulin 3.2 g/dL Albumin/Globulin Ratio 0.7 (1.0-2.7) L Height (Feet): 4 Height (Inches): 8.00 Weight (Pounds): 119 General Appearance: WD/WN, no apparent distress, alert Cardiovascular: normal rate Respiratory/Chest: normal breath sounds, no respiratory distress Abdominal Exam: normal bowel sounds, non tender, soft Extremities: normal range of motion, non-tender Darlyn Baptiste NP Mar 13, 2018 10:18
[2018-03-13] MEDS: cefTRIAXone 2 GM in D5W 110 ML IVPB SCH (11:59)
[2018-03-13 12:00] VITALS: BP 159/64
--- NOTE | 2018-03-13 12:16 | History and Physical Report ---
DATE OF ADMISSION: 03/12/2018 SOURCE OF INFORMATION: The patient and EMR. HISTORY OF PRESENT ILLNESS: The patient is a pleasant 83-year-old Luxembourger female. She is here on a vacation when per the family member had the acute onset of the passing red blood cell per rectum. Initial evaluation in the emergency room showed uncontrolled blood pressure. The patient is awake, alert. The patient denies any severe abdominal pain. Denies any nausea or vomitus. Denies any hematemesis. REVIEW OF SYSTEMS: All 12 elements of review of systems reviewed with the patient. Pertinent positives and negatives as above. ALLERGIES: NKDA. PAST MEDICAL HISTORY: Hypertension, otherwise unremarkable. HOME MEDICATIONS: Losartan. SOCIAL HISTORY: The patient has 12 children. Denies history of illicit drug abuse, smoking, or alcohol abuse. PHYSICAL EXAMINATION: VITAL SIGNS: Blood pressure 150/50, temperature 98.2, pulse oximetry 98% on room air, and respiratory rate 18. HEAD AND NECK: Atraumatic and normocephalic. CHEST: Clear to auscultation. HEART: S1 and S2. Regular rate and rhythm. ABDOMEN: Soft. No organomegaly. MUSCULOSKELETAL: No gross focal motor deficit. NEUROLOGIC: The patient is awake, alert, and oriented x3. DIAGNOSTIC AND LABORATORY DATA: Imaging studies, abdomen and pelvis CT scan dated March 12, 2018, reviewed shows diverticulitis in the sigmoid colon. Otherwise unremarkable. Labs, dated March 13, 2018, shows WBC 9.3, hemoglobin 9.5, and platelets are 188. Sodium 142, potassium 3.1, BUN 12, and creatinine of 0.7. The ALT and AST are normal. ASSESSMENT AND PLAN: 1. Acute lower GI bleed. 2. Sigmoid diverticulitis. 3. Acute anemia. 4. Hypokalemia. 5. Macrocytic anemia. 6. Hypertension. 7. GI and DVT prophylaxis. PLAN OF CARE: Continue with the current empiric antibiotic regimen. Consult Infectious Disease, surgeon. Continue with conservative management. Initiate liquid diet and advance as tolerated. Once cleared by GI, may follow up as an outpatient. Gregoria Anne M.D. DR: ALLAN JOB#: [id number] CC:
--- NOTE | 2018-03-13 13:15 | General Surgery Progress Note ---
General Surgery-Progress Note Subjective Additional Comments had bloody BM today. labs as below. no pain. no n/v/f/c. Objective Last 24 Hour Vital Signs Date Time Temp Pulse Resp B/P (MAP) Pulse Ox O2 Delivery O2 Flow Rate FiO2 03/13/18 09:06 131/50 03/13/18 09:06 131/50 03/13/18 08:00 97.8 74 18 131/50 95 97.8 03/13/18 04:00 97.6 70 18 129/8 96 97.6 03/13/18 00:00 98.6 76 18 149/55 96 98.6 03/12/18 20:47 159/64 03/12/18 20:00 98.3 77 18 168/78 98 98.3 03/12/18 17:19 159/64 03/12/18 15:40 96.8 69 18 159/64 98 96.8 I&O Intake and Output 03/12/18 03/13/18 19:00 07:00 Intake Total 955 ml 1100 ml Balance 955 ml 1100 ml Intake Oral 200 ml IV Total 755 ml 1100 ml # Voids 2 3 Drains: none Cardiovascular: RSR Respiratory: clear Abdomen: soft, flat, non-tender, present bowel sounds Extremities: no cyanosis Laboratory Tests Test 03/13/18 05:25 White Blood Count 9.3 K/UL (4.8-10.8) Red Blood Count 2.78 M/UL (4.20-5.40) L Hemoglobin 9.5 G/DL (12.0-16.0) L Hematocrit 27.7 % (37.0-47.0) L Mean Corpuscular Volume 100 FL (80-99) H Mean Corpuscular Hemoglobin 34.2 PG (27.0-31.0) H Mean Corpuscular Hemoglobin Concent 34.4 G/DL (32.0-36.0) Red Cell Distribution Width 11.9 % (11.6-14.8) Platelet Count 188 K/UL (150-450) Mean Platelet Volume 7.7 FL (6.5-10.1) Neutrophils (%) (Auto) 39.0 % (45.0-75.0) L Lymphocytes (%) (Auto) 44.6 % (20.0-45.0) Monocytes (%) (Auto) 15.1 % (1.0-10.0) H Eosinophils (%) (Auto) 0.6 % (0.0-3.0) Basophils (%) (Auto) 0.6 % (0.0-2.0) Sodium Level 142 MMOL/L (136-145) Potassium Level 3.1 MMOL/L (3.5-5.1) L Chloride Level 110 MMOL/L (98-107) H Carbon Dioxide Level 24 MMOL/L (21-32) Anion Gap 8 mmol/L (5-15) Blood Urea Nitrogen 12 mg/dL (7-18) Creatinine 0.7 MG/DL (0.55-1.30) Estimat Glomerular Filtration Rate mL/min (>60) Glucose Level 111 MG/DL (74-106) H Calcium Level 7.6 MG/DL (8.5-10.1) L Total Bilirubin 0.3 MG/DL (0.2-1.0) Aspartate Amino Transf (AST/SGOT) 23 U/L (15-37) Alanine Aminotransferase (ALT/SGPT) 20 U/L (12-78) Alkaline Phosphatase 93 U/L (46-116) Total Protein 5.4 G/DL (6.4-8.2) L Albumin 2.2 G/DL (3.4-5.0) L Globulin 3.2 g/dL Albumin/Globulin Ratio 0.7 (1.0-2.7) L Plan Problems: (1) Diverticulitis Assessment & Plan: 83F with diverticulitis, diverticulosis, and rectal bleeding. current afebrile, HD stable, leukocytosis resolved, labs otherwise stable. no pain. no n/v/f/c. rectal exam with gross melena. possible diverticulosis, resolved ischemic colitis? -no acute surgical intervention necessary -medical management of non complicated simple diverticulitis with abx -appreciate GI input - outpatient colonoscopy upon discharge will follow with recs. thank you for this consultation. Filiberto Moyer Mar 13, 2018 13:15
--- NOTE | 2018-03-13 14:24 | Infectious Diseases Prog Note ---
Assessment/Plan Problems: (1) Diverticulitis Assessment & Plan: continue ceftriaxon and metronidazol empiric coverage (2) Rectal bleeding Assessment & Plan: source diverticulosis VS ischemic colitis , had GI eval, close monitor of H/H, transfuse as needed (3) Hypertension Assessment & Plan: continue blood pressure meds monitor in tele Subjective Constitutional: Reports: no symptoms HEENT: Reports: no symptoms Respiratory: Reports: no symptoms Breasts: Reports: no symptoms Cardiovascular: Reports: no symptoms Gastrointestinal/Abdominal: Reports: bloating Genitourinary: Reports: no symptoms Neurologic: Reports: no symptoms Psychiatric: Reports: no symptoms Skin: Reports: no symptoms Endocrine: Reports: no symptoms Hematologic: Reports: no symptoms Allergies: Coded Allergies: No Known Allergies (Unverified , 03/12/18) Objective Vital Signs Last 24 Hour Vital Signs Date Time Temp Pulse Resp B/P (MAP) Pulse Ox O2 Delivery O2 Flow Rate FiO2 03/13/18 12:00 97.9 81 18 159/64 95 97.9 03/13/18 09:06 131/50 03/13/18 09:06 131/50 03/13/18 08:00 97.8 74 18 131/50 95 97.8 03/13/18 04:00 97.6 70 18 129/8 96 97.6 03/13/18 00:00 98.6 76 18 149/55 96 98.6 03/12/18 20:47 159/64 03/12/18 20:00 98.3 77 18 168/78 98 98.3 03/12/18 17:19 159/64 03/12/18 15:40 96.8 69 18 159/64 98 96.8 Height (Feet): 4 Height (Inches): 8.00 Weight (Pounds): 119 General Appearance: WD/WN HEENT: normocephalic, atraumatic, anicteric, mucous membranes moist Respiratory/Chest: chest wall non-tender, lungs clear, normal breath sounds, no respiratory distress, respiratory distress Cardiovascular: normal peripheral pulses, normal rate, regular rhythm, no gallop/murmur, no JVD Abdomen: normal bowel sounds, no organomegaly, non distended, no mass, tender Extremities: no cyanosis, no clubbing Skin: no rash, no lesions Laboratory Tests Test 03/13/18 05:25 White Blood Count 9.3 K/UL (4.8-10.8) Red Blood Count 2.78 M/UL (4.20-5.40) L Hemoglobin 9.5 G/DL (12.0-16.0) L Hematocrit 27.7 % (37.0-47.0) L Mean Corpuscular Volume 100 FL (80-99) H Mean Corpuscular Hemoglobin 34.2 PG (27.0-31.0) H Mean Corpuscular Hemoglobin Concent 34.4 G/DL (32.0-36.0) Red Cell Distribution Width 11.9 % (11.6-14.8) Platelet Count 188 K/UL (150-450) Mean Platelet Volume 7.7 FL (6.5-10.1) Neutrophils (%) (Auto) 39.0 % (45.0-75.0) L Lymphocytes (%) (Auto) 44.6 % (20.0-45.0) Monocytes (%) (Auto) 15.1 % (1.0-10.0) H Eosinophils (%) (Auto) 0.6 % (0.0-3.0) Basophils (%) (Auto) 0.6 % (0.0-2.0) Sodium Level 142 MMOL/L (136-145) Potassium Level 3.1 MMOL/L (3.5-5.1) L Chloride Level 110 MMOL/L (98-107) H Carbon Dioxide Level 24 MMOL/L (21-32) Anion Gap 8 mmol/L (5-15) Blood Urea Nitrogen 12 mg/dL (7-18) Creatinine 0.7 MG/DL (0.55-1.30) Estimat Glomerular Filtration Rate mL/min (>60) Glucose Level 111 MG/DL (74-106) H Calcium Level 7.6 MG/DL (8.5-10.1) L Total Bilirubin 0.3 MG/DL (0.2-1.0) Aspartate Amino Transf (AST/SGOT) 23 U/L (15-37) Alanine Aminotransferase (ALT/SGPT) 20 U/L (12-78) Alkaline Phosphatase 93 U/L (46-116) Total Protein 5.4 G/DL (6.4-8.2) L Albumin 2.2 G/DL (3.4-5.0) L Globulin 3.2 g/dL Albumin/Globulin Ratio 0.7 (1.0-2.7) L Current Medications Medications (Trade) Dose Ordered Sig/Isabel Route PRN Reason Start Time Stop Time Status Last Admin Dose Admin Acetaminophen (Tylenol) 650 mg Q4H PRN ORAL Mild Pain/Temp > 100.5 03/12/18 11:00 04/11/18 10:59 Ceftriaxone Sodium 2 gm/ Dextrose 110 ml @ 220 mls/hr Q24H IVPB 03/12/18 11:00 03/19/18 10:59 03/13/18 11:59 Clonidine HCl (Catapres Tab) 0.1 mg Q8H PRN ORAL For High Blood Pressure 03/12/18 11:15 04/11/18 11:14 03/12/18 20:47 Dextrose/Sodium Chloride 1,000 ml @ 100 mls/hr Q10H IV 03/12/18 11:00 04/11/18 10:59 03/13/18 05:46 Hydralazine HCl (Apresoline) 25 mg BID ORAL 03/12/18 18:00 04/11/18 17:59 03/13/18 09:06 Hydrocortisone (Anusol HC) 1 applic TWICE A DAY PRN RECTAL RECTAL BLEED 03/12/18 13:30 04/11/18 13:29 Iopamidol (Isovue-300 100ml) 100 ml NOW PRN INJ Radiology Procedure 03/12/18 06:15 03/15/18 06:14 Losartan Potassium (Cozaar) 25 mg DAILY ORAL 03/13/18 09:00 04/12/18 08:59 03/13/18 09:06 Metronidazole 100 ml @ 100 mls/hr Q8HR IVPB 03/12/18 14:00 03/19/18 13:59 03/13/18 14:17 Morphine Sulfate (Morphine Sulfate) 2 mg Q8H PRN IVP Severe Pain (Pain Scale 7-10) 03/12/18 11:00 03/19/18 10:59 Pantoprazole (Protonix) 40 mg DAILY IVP 03/13/18 09:00 04/12/18 08:59 03/13/18 09:06 Tatum Hernandez M.D. Mar 13, 2018 14:24
[2018-03-13 16:00] VITALS: BP 150/64
[2018-03-13] MEDS ORDERED: D5NS 1000ml IV ONE (16:21)
[2018-03-13 17:09] VITALS: BP 150/64
--- NOTE | 2018-03-14 10:04 | Discharge Summary ---
Discharge Summary Discharge Summary _ DATE OF ADMISSION: 03/12/2018 DATE OF DISCHARGE: 03/13/2018 CONSULTANTS: Dr. Jorge Hernandez BRIEF HOSPITAL COURSE: Patient is an 83-year-old [place] female, who is here on a vacation, developed acute onset of passing red blood stool per rectum. Initially thought vaginal bleeding but actually was rectal bleed. She denied fever or chills, denied nausea or vomiting. She denied urinary complaints. She had mild left upper quadrant pain that has been on and off. She has medical history significant for hypertension and is on losartan. On evaluation at ED, blood pressure was elevated 192/67. Blood work showed leukocytosis WBC 13.2, hemoglobin was 12.4, hematocrit 34.3. BUN was elevated to 21 with normal creatinine. She underwent CT of the abdomen and pelvis with questionable diverticulitis in the sigmoid region. She was then admitted for evaluation of acute lower GI bleed and possible sigmoid diverticulitis with acute anemia. She was initially placed on NPO and was given bowel rest. She was started empirically on ceftriaxone and Flagyl. Surgical evaluation was done. Abdominal examination was benign and pain resolved since admission. There was no acute surgical intervention necessary. Diet was advanced as tolerated. She was given proton pump inhibitors and was recommended to follow-up for colonoscopy 2 months after discharge. She had low potassium levels and was given potassium supplements. Social service was called in to aid with social assistance. Full treatment was not carried out as she left AGAINST MEDICAL ADVICE. FINAL DIAGNOSES: Acute lower GI bleed Sigmoid diverticulitis Acute anemia Hypokalemia Hypertension DISPOSITION: Patient left AMA. I have been assigned to dictate discharge summary on this account, and I was not involved in the patient's management. Melodie Winter NP Mar 14, 2018 10:04
== END 2018-03-13 19:05 | disposition left against medical advice (07) | DRG 378 ==
LOC: EMR 06:27 → 4E 07:35 → EDBEDREQ 09:38
DX: K57.31 Diverticulosis of large intestine without perforation or abscess with bleeding (principal); D62 Acute posthemorrhagic anemia; K57.32 Diverticulitis of large intestine without perforation or abscess without bleeding; D64.9 Anemia, unspecified; E87.6 Hypokalemia; I10 Essential (primary) hypertension; I25.10 Atherosclerotic heart disease of native coronary artery without angina pectoris; K44.9 Diaphragmatic hernia without obstruction or gangrene; D50.0 Iron deficiency anemia secondary to blood loss (chronic)
CPT/HCPCS: 36415; 74177; 80053; 81003; 83690; 85025; 86850; 86900; 86901; 87040; 93005; 99285; J8499